=== PATIENT | male | born 1955 | race Caucasian/White ===

== ENCOUNTER → 2016-12-12 | Outpatient (CLI) | payer OTHER | LOC: BMCIMAGING 08:57 | PROVIDERS: ATTEND Internal Medicine Rheumatology | DX: Z13.828 Encounter for screening for other musculoskeletal disorder (principal); M16.11 Unilateral primary osteoarthritis, right hip ==

== ENCOUNTER → 2017-07-03 | Outpatient (CLI) | payer OTHER | LOC: FIMAGING 13:44 | PROVIDERS: ATTEND Orthopaedic Surgery | DX: Z01.818 Encounter for other preprocedural examination (principal); M16.11 Unilateral primary osteoarthritis, right hip; M25.551 Pain in right hip ==

== ENCOUNTER → 2017-07-25 | Outpatient (CLI) | payer OTHER | LOC: FIMAGING 11:55 | PROVIDERS: ATTEND Orthopaedic Surgery | DX: Z01.818 Encounter for other preprocedural examination (principal); M25.851 Other specified joint disorders, right hip ==

== ENCOUNTER 2017-07-29 05:54 | Inpatient (IN) | payer OTHER ==
[2017-07-29] MEDS ORDERED: ROPIVACAINE 0.2% 80 MG, EPINEPHrine 0.2 MG, KETOROLAC TROMETHAMINE 30 MG, morphINE 10 M... IU ONE (06:00)
[2017-07-29] MEDS ORDERED: TRANEXAMIC ACID 1,000 MG in NS 100 ML IV ONE (06:00)
[2017-07-29] MEDS ORDERED: FAMOTIDINE 20 MG TAB PO ONE (06:11)
[2017-07-29] MEDS ORDERED: ceFAZolin 2 GM/SWFI 2 GM/20 ML SYR IVP ONE (06:11)
[2017-07-29] MEDS ORDERED: ACETAMINOPHEN 325 MG TAB PO ONE (06:11)
[2017-07-29] MEDS ORDERED: LIDOCAINE 1% 2 ML INJ ID PRN (06:12)
[2017-07-29] MEDS ORDERED: LR 1,000 ML IV ONE (06:12)
--- NOTE | 2017-07-29 06:28 | PDHPUP ---
History & Physical Update H&P update statement: This history and physical update is based on an assessment of the patient which was completed after admission or registration (within 24 hours), but prior to the surgery/procedure. H&P update: no change in patient's condition since H&P completed
--- NOTE | 2017-07-29 06:30 | PDIAF ---
- Diagnosis Diagnosis: right hip djd Code Status: Full Code - Medication Management Discharge Medications: Medications to Continue on Transfer Acetaminophen [Tylenol 325mg (*)] 650 mg PO Q6 PRN 07/15/17 [Last Taken Unknown] Benadryl 07/15/17 [Last Taken Unknown] Fluticasone Nasal [Flonase Nasal [place] (RX)] 1 sprays NASAL DAILY PRN 07/15/17 [ Last Taken Unknown] Ibuprofen [Motrin (*)] 600 mg PO Q8 PRN 07/15/17 [Last Taken Unknown] Ketotifen Fumarate [Eye Itch Relief] 1 drop EACHEYE DAILY PRN 07/15/17 [Last Taken Unknown] Multivitamins [Multivitamin (*)] 1 each PO DAILY 07/15/17 [Last Taken Unknown] Vitamin B Complex [Vitamin B Complex (OTC)] 1 each PO DAILY 07/15/17 [Last Taken Unknown] Discharge Medications: Refer to the Discharge Home Medication list for PRN reason. - Orders Services needed: Physical Therapy Diet Recommendation: no restrictions on diet Diet Texture: Regular Texture Diet Activity/Weight Bearing Restrictions: wbat. anterior hip precautions. keep dressing in place. if dressing becomes saturated change daily. f/u at two weeks. seek attn for increasing pain, drainage, swelling or other focal complaint Additional Instructions: TOTAL JOINT ARTHROPLASTY DISCHARGE INSTRUCTIONS 1. Your surgeon follows the [facility] protocol for reducing your risk of DVT (blood clots) following surgery. Medication will be ordered to prevent blood clots. A sudden increase in calf pain and/or swelling could indicate a blood clot in your leg. If this occurs, please call your surgeon or his/her autopsy assistant. An ultrasound of the leg may be necessary to diagnose a blood clot. If you have conditions that make you a higher risk for blood clots, your surgeon may use more aggressive ways to prevent them. Notify your surgeon if you think you are a high risk for blood clots. 2. Wear your white surgical stockings (SANDRA hose) for 2 weeks. This decreases your swelling and may help prevent blood clots. It is ok to remove SANDRA hose at night time to give your legs a break. 3. Swelling and bruising in the surgical leg is common. If you feel that it is excessive, please notify your surgeon. 4. Elevate your surgical leg with the ankle above the hip several times every day. Please keep the leg straight when you elevate by putting pillows under your foot. Do not put pillows under your knee. This will make being able to fully straighten more difficult. This is uncomfortable, but try to do it as much as possible. 5. For total knee replacements use compressive wrap on your knee for 3-5 days after surgery, then you can discontinue it. 6. Use a walker or crutches for 1-2 weeks. Progress your weight-bearing as tolerated. You may start to use a cane when you feel stable and safe. 7. You will receive physical therapy instructions in the hospital. Continue those exercises at home. There are additional exercises in the total joint booklet you were given before surgery. Outpatient physical therapy will begin 7- 10 days after surgery. Please schedule this in advance. 8. Use ice on your knee at least 3-5 times every day for 30 minutes. This helps reduce pain and swelling. Also use it at night before falling asleep. 9. Leave your surgical dressing in place for 2 weeks. Your dressing is water resistant, but not waterproof. Cover it with Saran Wrap or Totih-u-Ahvc before showering. You may shower as soon as you feel safe entering a shower. If you notice bleeding from your incision 2 or 3 days after surgery, please notify your surgeon. 10. Due to narcotics, decreased activity and altered diet, most patients experience constipation after surgery. Use cczo-hdv-acxgyey stool softeners while you are on narcotics. 11. You may drive a car when you are comfortable bearing weight, have good muscular control of your leg and are off narcotics. This usually occurs 2-4 weeks after surgery, depending on which leg was operated on. 12. If there are questions not addressed here, please refer the [facility] book given for more information. If you still have questions, please contact your surgeon s office. 13. If you have a life-threatening emergency, please call 911 and go to the emergency room immediately. For non-life threatening emergencies, please call your physicians office for advice before going to the emergency room. - Follow Up Care Current Providers and Referrals: Gale Lima MD [Primary Care Provider] - Ga Cota MD [Medical Doctor] -
[2017-07-29] MEDS ORDERED: ceFAZolin 1 GM/5 ML SYR ONE (06:52)
[2017-07-29] MEDS ORDERED: MIDAZOLAM 2 MG/2 ML VIAL IVP ONE (07:01)
--- NOTE | 2017-07-29 07:03 | PDANEPAE ---
ANE History of Present Illness DJD R hip s/f R EVA ANE Past Medical History - Cardiovascular History Hx Hypertension: No Hx Arrhythmias: No Hx Chest Pain: No Hx Coronary Artery / Peripheral Vascular Disease: No Hx CHF / Valvular Disease: No Hx Palpitations: No - Pulmonary History Hx COPD: No Hx Asthma/Reactive Airway Disease: No Hx Recent Upper Respiratory Infection: No Hx Oxygen in Use at Home: No Hx Sleep Apnea: No Sleep Apnea Screening Result - Last Documented: Negative - Neurologic History Hx Cerebrovascular Accident: No Hx Seizures: No Hx Dementia: No - Endocrine History Hx Diabetes: No - Renal History Hx Renal Disorders: No - Liver History Hx Hepatic Disorders: No - Neurological & Psychiatric Hx Hx Neurological and Psychiatric Disorders: Yes Neurological / Psychiatric History Comment: "LOW BACK DOESN'T FEEL GREAT -DUE TO DISC COMPRESSION-NOTED ON CT" - Cancer History Hx Cancer: No - Congenital Disorder History Hx Congenital Disorders: No - GI History Hx Gastrointestinal Disorders: No - Other Health History Other Health History: OA- R HIP. PSORIATIC ARTHRITIS DX -NO LESIONS. LAST DOSE OF HUMIRA WAS EARLY Mar - Chronic Pain History Chronic Pain: Yes (R HIP) - Surgical History Prior Surgeries: NONE ANE Review of Systems Review of Systems: - Exercise capacity METS (RN): 4 METS ANE Patient History - Allergies Allergies/Adverse Reactions: No Known Allergies Allergy (Unverified 07/15/17 14:17) - Home Medications Home medications: home medication list seen and reviewed Home Medications: Acetaminophen [Tylenol 325mg (*)] 650 mg PO Q6 PRN 07/15/17 [Last Taken 07/28/17 ] Benadryl 07/15/17 [Last Taken 07/28/17] Fluticasone Nasal [Flonase Nasal [place] (RX)] 1 sprays NASAL DAILY PRN 07/15/17 [ Last Taken 07/29/17] Ibuprofen [Motrin (*)] 600 mg PO Q8 PRN 07/15/17 [Last Taken 07/22/17] Ketotifen Fumarate [Eye Itch Relief] 1 drop EACHEYE DAILY PRN 07/15/17 [Last Taken 07/28/17] Multivitamins [Multivitamin (*)] 1 each PO DAILY 07/15/17 [Last Taken 07/22/17] Vitamin B Complex [Vitamin B Complex (OTC)] 1 each PO DAILY 07/15/17 [Last Taken 07/22/17] - NPO status NPO Status: no food or drink >8 hours (except meds at 0700) NPO Since - Liquids (Date): 07/28/17 NPO Since - Liquids (Time): 21:00 NPO Since - Solids (Date): 07/28/17 NPO Since - Solids (Time): 17:00 - Anes Hx Anes Hx: no prior problems - Smoking Hx Smoking Status: Never smoked - Alcohol Use Alcohol Use: Occasionally - Family Anes Hx Family Anes Hx: none Family Hx Anesthesia Complications: NONE ANE Labs/Vital Signs - Labs - CBC WBC: reviewed and okay - Vital Signs Blood Pressure: 110/72 Heart Rate: 74 Respiratory Rate: 12 O2 Sat (%): 96 Height: 170.18 cm Weight: 70.307 kg ANE Physical Exam - Airway Mallampati Score: Class 2 Mouth exam: normal dental/mouth exam - Pulmonary Pulmonary: no respiratory distress - Cardiovascular Cardiovascular: regular rate and rhythym - ASA Status ASA Status: II ANE Anesthesia Plan Anesthesia Plan: spinal
[2017-07-29] MEDS ORDERED: PROMETHAZINE HCL 25 MG/ML INJ IVP PRN ×2 (07:16→08:55)
[2017-07-29] MEDS ORDERED: METOCLOPRAMIDE 10 MG/2 ML VIAL IVP PRN ×2 (07:16→08:55)
[2017-07-29] MEDS ORDERED: CYCLOBENZAPRINE 10 MG TAB PO PRN (07:16)
[2017-07-29] MEDS ORDERED: TEMAZEPAM 15 MG CAP PO PRN (07:16)
[2017-07-29] MEDS ORDERED: PROMETHAZINE HCL 25 MG SUPPR PR PRN (07:16)
[2017-07-29] MEDS ORDERED: PROPOFOL/EMULSION 500 MG/50 ML BOTTLE IV ONE ×2 (07:16→08:02)
[2017-07-29] MEDS ORDERED: LACTULOSE 20 GM/30 ML UDCUP PO PRN (07:16)
[2017-07-29] MEDS ORDERED: ONDANSETRON DISINTEGRATING 4 MG TAB PO PRN (07:16)
[2017-07-29] MEDS ORDERED: MAGNESIUM HYDROXIDE 30 ML UDCUP PO PRN (07:16)
[2017-07-29] MEDS ORDERED: DIPHENOXYLATE/ATROPINE LOMOTIL 1 TAB PO PRN (07:16)
[2017-07-29] MEDS ORDERED: BISACODYL 10 MG SUPP PR PRN (07:16)
[2017-07-29] MEDS ORDERED: POLYETHYLENE GLYCOL 3350 17 GM PKT PO PRN (07:16)
[2017-07-29] MEDS ORDERED: ONDANSETRON 4 MG/2 ML VIAL IVP PRN ×2 (07:16→08:55)
[2017-07-29] MEDS ORDERED: fentaNYL 100 MCG/2 ML INJ ONE (07:16)
[2017-07-29] MEDS ORDERED: diphenhydrAMINE 25 MG CAP PO PRN (07:16)
[2017-07-29] MEDS ORDERED: traMADol 50 MG TAB PO PRN (07:16)
[2017-07-29] MEDS ORDERED: KETOTIFEN FUMARATE EACHEYE PRN (07:17)
[2017-07-29] MEDS ORDERED: LIDOCAINE 2% JELLY 5 ML TUBE ONE (07:29)
[2017-07-29] MEDS ORDERED: TRANEXAMIC ACID 650 MG TAB PO SCH (07:30)
[2017-07-29] MEDS ORDERED: LR 1,000 ML IV SCH (07:30)
[2017-07-29] MEDS ORDERED: PHENYLEPHRINE HCL 100 MCG/ML SYR ONE (07:47)
[2017-07-29] MEDS ORDERED: epHEDrine SULFATE 10 MG/ML SYR ONE (08:09)
--- NOTE | 2017-07-29 08:20 | PDMN ---
Medical Necessity Medical necessity: [facility] [place] S5 hip arthroplasty A-2 days: MATTIE INPT only - R EVA
[2017-07-29] MEDS ORDERED: PROPOFOL 200 MG/20 ML VIAL ONE (08:44)
[2017-07-29] MEDS ORDERED: MEPERIDINE 25 MG/0.5 ML AMP IVP PRN (08:55)
[2017-07-29] MEDS ORDERED: DEXAMETHASONE 4 MG/ML VIAL IVP PRN (08:55)
[2017-07-29] MEDS ORDERED: ALBUTEROL 3 ML DEYVIAL IH PRN (08:55)
[2017-07-29] MEDS ORDERED: oxyCODONE IR 5 MG TAB PO PRN (08:55)
[2017-07-29] MEDS ORDERED: ACETAMINOPHEN 500 MG TAB PO PRN (08:55)
[2017-07-29] MEDS ORDERED: HYDROCODONE/APAP 5/325 TAB PO PRN (08:55)
[2017-07-29] MEDS ORDERED: fentaNYL 100 MCG/2 ML INJ IVP PRN (08:55)
[2017-07-29] MEDS ORDERED: LABETALOL HCL 5 MG/ML 20 ML MDV IVP PRN (08:55)
[2017-07-29] MEDS ORDERED: NALOXONE HCL 0.4 MG/ML INJ IVP PRN (08:55)
[2017-07-29] MEDS ORDERED: LR 500 ML IV PRN (08:55)
[2017-07-29] MEDS ORDERED: PHENYLEPHRINE HCL 100 MCG/ML SYR IVP PRN (08:55)
--- NOTE | 2017-07-29 09:00 | POSTOPPROG ---
Post Op Note Date of Operation: 07/29/17 Surgeon: Ga Cota Inspector Balance Truing: era Anesthesia: Epidural, IV Sedation Pre-op Diagnosis: right hip djd Post-op Diagnosis: same Indication: same Procedure: right sandip Inf/Abcess present in the surg proc area at time of surgery?: No Depth: Deep Incisional (Fascial) EBL: 100-500 Complications: retainer reamer head
[2017-07-29] MEDS: SENNOSIDES/DOCUSATE SODIUM TAB PO SCH ×2 (10:55→22:06)
[2017-07-29] MEDS: MULTIVITAMINS 1 EACH TAB PO SCH (10:55)
[2017-07-29] MEDS: VITAMIN B COMPLEX 1 EA CAP/TAB PO SCH (10:55)
[2017-07-29] MEDS: ACETAMINOPHEN 325 MG TAB PO SCH ×2 (12:23→17:44)
[2017-07-29] MEDS: TRANEXAMIC ACID 650 MG TAB PO SCH ×2 (12:24→22:05)
--- NOTE | 2017-07-29 12:24 | POSTANESTH ---
Post Anesthetic Evaluation Cardiovascular Status: Normal, Stable Respiratory Status: Normal, Stable Level of Consciousness/Mental Status: Can Participate in Eval Pain Control: Adequate, Prn Tx Ordered Nausea/Vomiting Control: Adequate, Prn Tx Ordered Complications Possibly Related to Anesthesia: None Noted
[2017-07-29] MEDS: ceFAZolin 2 GM/DEXTROSE 100 ML IV SCH ×2 (14:44→22:05)
[2017-07-29] MEDS: oxyCODONE IR 5 MG TAB PO PRN ×2 (18:07→22:12)
[2017-07-29] MEDS: ASPIRIN 325 MG TAB PO SCH (22:05)
[2017-07-29] MEDS: FAMOTIDINE 20 MG TAB PO SCH (22:06)
[2017-07-30] MEDS: ACETAMINOPHEN 325 MG TAB PO SCH ×3 (00:22→12:44)
[2017-07-30] MEDS: oxyCODONE IR 5 MG TAB PO PRN ×2 (02:13→05:35)
[2017-07-30] MEDS: TRANEXAMIC ACID 650 MG TAB PO SCH (05:34)
--- NOTE | 2017-07-30 07:21 | SOAPPROG ---
SOAP Progress Note Assessment/Plan: Assessment: s/p right sandip Plan:d/c home new xrays to document reamer tip within femur wbat anterior hip precautions 07/30/17 07:20 Subjective: mild pain no cp or sob Objective: Vital Signs Temp Pulse Resp BP Pulse Ox 37.1 C 76 16 118/66 96 07/30/17 04:00 07/30/17 04:00 07/30/17 04:00 07/30/17 04:00 07/30/17 04:00 Laboratory Results 07/30/17 04:23 07/29/17 07/30/17 07/31/17 05:59 05:59 05:59 Intake Total 2160 Output Total 1100 Balance 1060 dressing intact intact pf,df,ehl toes warm and pink neg homans zane ICD10 Worksheet Patient Problems: Problems Problem Status Onset Hip arthritis Acute - ICD10 Problem Qualifiers (1) Hip arthritis
--- NOTE | 2017-07-30 07:27 | PDIAF ---
- Diagnosis Diagnosis: right hip djd Code Status: Full Code - Medication Management Discharge Medications: Medications to Continue on Transfer Acetaminophen [Tylenol 325mg (*)] 650 mg PO Q6 PRN 07/15/17 [Last Taken 07/28/17 ] Fluticasone Nasal [Flonase Nasal [place]] 1 sprays NASAL DAILY PRN 07/15/17 [Last Taken 07/29/17] Ibuprofen [Motrin (*)] 600 mg PO Q8 PRN 07/15/17 [Last Taken 07/22/17] Ketotifen Fumarate [Eye Itch Relief] 1 drop EACHEYE DAILY PRN 07/15/17 [Last Taken 07/28/17] Multivitamins [Multivitamin (*)] 1 each PO DAILY 07/15/17 [Last Taken 07/22/17] Vitamin B Complex [Vitamin B Complex (OTC)] 1 each PO DAILY 07/15/17 [Last Taken 07/22/17] diphenhydrAMINE [Benadryl 25 MG (*)] 25 mg PO DAILY PRN 07/15/17 [Last Taken ] Aspirin [Aspirin 325 mg (*)] 325 mg PO DAILY tab 07/30/17 [Last Taken Unknown] oxyCODONE IR [Oxycodone Ir (*)] 5 - 10 mg PO Q3HRS PRN #45 tab 07/30/17 [Last Taken Unknown] Discharge Medications: Refer to the Discharge Home Medication list for PRN reason. - Orders Services needed: Physical Therapy Diet Recommendation: no restrictions on diet Diet Texture: Regular Texture Diet Activity/Weight Bearing Restrictions: wbat. anterior hip precautions. keep dressing in place. if dressing becomes saturated change daily. f/u at two weeks. seek attn for increasing pain, drainage, swelling or other focal complaint Additional Instructions: TOTAL JOINT ARTHROPLASTY DISCHARGE INSTRUCTIONS 1. Your surgeon follows the [facility] protocol for reducing your risk of DVT (blood clots) following surgery. Medication will be ordered to prevent blood clots. A sudden increase in calf pain and/or swelling could indicate a blood clot in your leg. If this occurs, please call your surgeon or his/her logging assistant. An ultrasound of the leg may be necessary to diagnose a blood clot. If you have conditions that make you a higher risk for blood clots, your surgeon may use more aggressive ways to prevent them. Notify your surgeon if you think you are a high risk for blood clots. 2. Wear your white surgical stockings (SANDRA hose) for 2 weeks. This decreases your swelling and may help prevent blood clots. It is ok to remove SANDRA hose at night time to give your legs a break. 3. Swelling and bruising in the surgical leg is common. If you feel that it is excessive, please notify your surgeon. 4. Elevate your surgical leg with the ankle above the hip several times every day. Please keep the leg straight when you elevate by putting pillows under your foot. Do not put pillows under your knee. This will make being able to fully straighten more difficult. This is uncomfortable, but try to do it as much as possible. 5. For total knee replacements use compressive wrap on your knee for 3-5 days after surgery, then you can discontinue it. 6. Use a walker or crutches for 1-2 weeks. Progress your weight-bearing as tolerated. You may start to use a cane when you feel stable and safe. 7. You will receive physical therapy instructions in the hospital. Continue those exercises at home. There are additional exercises in the total joint booklet you were given before surgery. Outpatient physical therapy will begin 7- 10 days after surgery. Please schedule this in advance. 8. Use ice on your knee at least 3-5 times every day for 30 minutes. This helps reduce pain and swelling. Also use it at night before falling asleep. 9. Leave your surgical dressing in place for 2 weeks. Your dressing is water resistant, but not waterproof. Cover it with Saran Wrap or Eqpik-i-Siea before showering. You may shower as soon as you feel safe entering a shower. If you notice bleeding from your incision 2 or 3 days after surgery, please notify your surgeon. 10. Due to narcotics, decreased activity and altered diet, most patients experience constipation after surgery. Use tpyw-qql-lbaeqrk stool softeners while you are on narcotics. 11. You may drive a car when you are comfortable bearing weight, have good muscular control of your leg and are off narcotics. This usually occurs 2-4 weeks after surgery, depending on which leg was operated on. 12. If there are questions not addressed here, please refer the [facility] book given for more information. If you still have questions, please contact your surgeon s office. 13. If you have a life-threatening emergency, please call 911 and go to the emergency room immediately. For non-life threatening emergencies, please call your physicians office for advice before going to the emergency room. - Follow Up Care Current Providers and Referrals: Ga Cota MD [Medical Doctor] - Gale Lima MD [Primary Care Provider] -
[2017-07-30] MEDS: FAMOTIDINE 20 MG TAB PO SCH (08:19)
[2017-07-30] MEDS: MULTIVITAMINS 1 EACH TAB PO SCH (08:19)
[2017-07-30] MEDS: VITAMIN B COMPLEX 1 EA CAP/TAB PO SCH (08:19)
[2017-07-30] MEDS: ASPIRIN 325 MG TAB PO SCH (08:19)
[2017-07-30] MEDS: SENNOSIDES/DOCUSATE SODIUM TAB PO SCH (08:19)
[2017-07-30 11:58] VITALS: BP 145/68
--- NOTE | 2017-07-30 12:16 | ASMTCMCOM ---
CM Note CM Note Notes: Pt s/p OA of hip. PT rec home. Pt medically stable for d/c with family support, brother will provide assistance. No CM d/c needs identified. Date Signed: 07/30/2017 12:15 PM Electronically Signed By:JUAN A Payne
--- NOTE | 2017-08-14 07:18 | GDS ---
[f rep st] DISCHARGE SUMMARY ADMIT DIAGNOSIS: Right hip degenerative joint disease. DISCHARGE DIAGNOSIS: Right hip degenerative joint disease. PROCEDURE: Right total hip arthroplasty. HISTORY OF PRESENT ILLNESS: Delano Hanley is a 62-year-old gentleman with end-stage arthritis to his r ight hip. Clinical and radiographic features consistent with this. He presents for elective total h ip replacement. HOSPITAL COURSE: The patient was admitted to the hospital floor after uncomplicated total hip arthro plasty. He tolerated the procedure well. Postoperatively, he had no complications. He quickly prog ressed with physical therapy. At the time of discharge, he is tolerating an oral diet. Pain is well controlled on oral medicines. He is voiding without difficulty. Dressing is clean, dry, and intact . He has negative Homans. X-rays are stable. DISCHARGE ACTIVITIES: Weightbearing as tolerated. Anterior hip precautions. Daily dressing changes . No soaking or immersion. May follow up in 2 weeks for repeat evaluation. DISCHARGE MEDICATIONS: Oxycodone 5 mg 1-2 every 6 hours p.r.n. pain, aspirin 325 mg p.o. daily. /[id number]/MODL
--- NOTE | 2017-08-14 10:03 | GOP ---
[f rep st] OPERATIVE REPORT DATE OF OPERATION: 07/29/2017 SURGEON: Ga Cota MD DIRECTOR OF OPERATIONS SUPPORT: Floyd Richardson, TRAFFIC SAFETY ADMINISTRATOR, POT PRESS OPERATOR, custody assistant, who was a medical necessity for the entire ty of the case. PREOPERATIVE DIAGNOSIS: Right hip degenerative joint disease. POSTOPERATIVE DIAGNOSIS: Right hip degenerative joint disease. PROCEDURE PERFORMED: Right total hip arthroplasty, anterior/MAKOplasty. FINDINGS: SPECIMENS: To Pathology the femoral head. ESTIMATED BLOOD LOSS: 200 cc. INDICATIONS: The patient is a 62-year-old gentleman with end-stage arthritis to his right hip. Clin ical and radiographic features are consistent with this. He has failed all attempts at conservative management. I have therefore recommended a total hip replacement. He understood the risks, benefits , alternatives, and wished to proceed. Written consent was signed and placed in the patient's chart. DESCRIPTION OF PROCEDURE: The patient was identified in the preanesthesia area. The right hip clear ly demarcated as the operative site with indelible marker. He was given 2 g of Ancef intravenously e n route to the operative suite. In the OR, a spinal anesthetic was placed followed by sedation. He was positioned on the supine position with the pelvis and both lower extremities sterilely prepped an d draped in the usual fashion. Appropriate time-out procedure was carried out. Attention was first turned to the left hemipelvis which was a linear incision was made approximately 2 cm in length over the iliac crest. 3 pins were then placed and the pelvic reference array affixed. Attention was then turned to the right hip which was sterilely prepped and draped in the usual [facility] ion as above. An anterior approach was made to the right hip. This was carried sharply through the skin and subcutaneous tissue, directly to the fascia overlying the tensor fascia rowdy. This was open ed in the origin of its fibers. The tensor retracted in a lateral direction. The underlying vascula r structures were identified, ligated, cauterized, and transected. The rectus was elevated off the a nterior capsule. Retractor was placed in an extracapsular position over the medial and superior aspe ct of the femoral neck. A T was made in the capsule, and the retractors were placed into an intracap sular position. An acetabular checkpoint was placed. A bony wedge was withdrawn from the femoral ne ck as was the femoral head. The remnants of the soft tissue were sharply excised. The bony landmark s were entered into the computer. Then using the MAKOplasty robot protocol and a single stage reamer , a 54 mm outer diameter reamer was utilized. This was placed to the appropriate depth with an openi ng angle of 40 and anteversion of 20 degrees. A Tritanium acetabular shell was then impacted, confir med to be fully seated. A single 6.5 mm cancellous screw was then placed superiorly through the acet abular dome. A 36 mm inner diameter X3 liner was then impacted, confirmed to be fully seated. Attention was then turned to the femur. The femur was delivered through the wound with the use of ex tension of the table, soft tissue releases, and retractor placement. The proximal canal was opened. Serial broaching was carried out to a size 4 stem. Trial reduction was carried out with a 36 mm -5 mm head. This allowed bahai of leg lengths, stability through the flexion-extension arc. Stab ility was intact with full extension and external rotation of 90 degrees. The trial stem was withdra wn. A size 427 degree stem was then impacted, confirmed to be fully seated, and a 36 mm -5 mm neck l ength Biolox head was then placed. The hip was copiously irrigated, reduced. The stability profile was the same as above. Intraoperative fluoroscopy confirmed appropriate positioning. The hip was th en copiously irrigated, closed in layers using 0 Vicryl, 2-0 Monocryl, and bulmaro. The margins were instilled with a joint cocktail of ropivacaine, morphine, Toradol, and epinephrine. A sterile dress ing was applied. The patient was awakened, extubated, taken to recovery room in good stable conditio n. TOTAL TOURNIQUET TIME: None. COMPLICATIONS: None. IMPLANTS: Tritanium acetabular shell, size 54, X 3 0 degree polyethylene insert, 36 mm, Biolox Delta ceramic head, 36 mm, -5 mm neck length, Accolade 227-degree neck, angle hip stem size 4, and a 6.5 m m cancellous bone screw. DISPOSITION: To the recovery room and then the floor. He is weightbearing, range of motion as daniel ated. /[id number]/MODL
== END 2017-07-30 13:26 | disposition home or self-care (01) | DRG 470 ==
LOC: F3N 05:54
PROVIDERS: ADMIT Orthopaedic Surgery; ATTEND Orthopaedic Surgery
PROC: 0SR904Z Replacement of Right Hip Joint with Ceramic on Polyethylene Synthetic Substitute, Open Approach (ICD-10-PCS; principal; 2017-07-29 07:15)
PROC: 8E0Y0CZ Robotic Assisted Procedure of Lower Extremity, Open Approach (ICD-10-PCS; principal; 2017-07-29 07:15)
DX: M16.11 Unilateral primary osteoarthritis, right hip (principal)
CPT/HCPCS: 97116-GP; 97161-GP; 97165-GO; C1713; J0171; J0690; J1885; J2250; J2270; J2370; J2704; J2795; J3010

== ENCOUNTER → 2017-09-05 | Outpatient (CLI) | payer OTHER | LOC: BMCIMAGING 09:53 | PROVIDERS: ATTEND Physician Assistant | DX: Z47.1 Aftercare following joint replacement surgery (principal); Z96.641 Presence of right artificial hip joint ==

== ENCOUNTER → 2018-01-16 | Outpatient (CLI) | payer OTHER | LOC: BMCIMAGING 08:23 | PROVIDERS: ATTEND Orthopaedic Surgery | DX: Z47.1 Aftercare following joint replacement surgery (principal); Z96.641 Presence of right artificial hip joint ==

== ENCOUNTER → 2018-07-16 | Outpatient (CLI) | payer OTHER | LOC: BMCIMAGING 08:08 | PROVIDERS: ATTEND Orthopaedic Surgery | DX: Z47.1 Aftercare following joint replacement surgery (principal); Z96.641 Presence of right artificial hip joint ==